=== PATIENT | female | born 1990 ===

== ENCOUNTER 2022-08-04 06:24 | Day surgery (SDC) | payer OTHER ==
[~2022-08-04] VITALS: Ht 154.9 cm; Wt 124.7 kg
[2022-08-04] MEDS ORDERED: IBU600 MG PO (14:34)
== END 2022-08-04 19:00 | disposition home or self-care (01) ==
LOC: CIR.AMB 06:24
PROVIDERS: ATTEND Obstetrics & Gynecology Gynecology
DX: N95.0 Postmenopausal bleeding (principal); N85.00 Endometrial hyperplasia, unspecified; Z20.822 Contact with and (suspected) exposure to COVID-19; F17.210 Nicotine dependence, cigarettes, uncomplicated